=== PATIENT | female | born 1935 | race Caucasian/White ===

== ENCOUNTER → 2020-07-09 10:49 | Outpatient (CLI) | payer OTHER, SELFPAY ==
[2020-07-11 15:36] LABS: COVID19 Sendout Not Detected (Not Detect)
== END ==
PROVIDERS: Visit Provider Physician Assistant
DX: Z11.59 Encounter for screening for other viral diseases (principal)
CPT/HCPCS: 87635

== ENCOUNTER 2020-07-12 11:00 | Inpatient (IN) | payer OTHER, SELFPAY ==
[2020-07-05 08:47] VITALS: BMI 46.7
[2020-07-12] VITALS (14 sets, daily range): BP systolic 104–165; BP diastolic 70–101; PULSE 63–80; RESP 8–20; TEMP 35.9–36.9; O2SAT 90–99; BMI 46.7
--- NOTE | 2020-07-12 | DI.RAD.S_ITS ---
PROCEDURE: XR LUMBAR SPINE 2-3V INDICATIONS: L3-4, L4-5 TLIF TECHNIQUE: 2 views of the lumbar spine were acquired. COMPARISON: None. FINDINGS: Bones: L3-L5 spinal fixation hardware with paraspinal james and pedicle screws as well as interbody cage grafts. Expected intraoperative alignment. Dictated by: Matthew Last M.D. on 07/12/2020 at 16:28 Approved by: Matthew Last M.D. on 07/12/2020 at 16:29
[2020-07-12] MEDS: LACTATED RINGERS 1,000 ML 42 ML IV ×2 (11:40→14:38)
--- NOTE | 2020-07-12 11:51 | PM.PREOP ---
Pre-operative Note COVID-19 COVID-19 status: Negative Result date/Date tested (Pos, Neg/Pending): 07/10/20 Interval Note History & Physical reviewed/Exam performed by Physician: Yes Changes to H&P: No
[2020-07-12] MEDS: CEFAZOLIN 2 GM/100 ML FROZ.PIGGY IV ×2 (12:25→20:54)
--- NOTE | 2020-07-12 13:16 | SUR.OPER ---
Prone on spine table, head in foam head support, padded chest and pelvic supports, gel pad at knees, lower legs supported by pillows; nipples, genitalia and toes free of pressure, arms secured on foam padded arm boards at <90 degrees abduction. Tape over blanket at thigh secured to table.
[2020-07-12] MEDS: BUPIVACAINE 0.25% W/ EPI 30 ML VIAL INJ (13:23)
[2020-07-12] MEDS: BUPIVACAINE LIPOSOME 266 MG/20 ML VIAL INJ (13:23)
--- NOTE | 2020-07-12 14:09 | SUR.OPER ---
GLASSES IN LABELED CASE TO PACU WITH PATIENT.
--- NOTE | 2020-07-12 16:32 | PM.OP.1 ---
Operative Date/Time/Diagnoses Date of procedure: 07/12/20 Time of procedure: 12:33 Pre-op diagnosis: 1. 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 L3-4, L4-5 spondylolisthesis 3. L3-4, L4-5 spinal stenosis Post-op diagnosis: same Procedure & Clinicians Procedure: 1. L3-4, L4-5 Postero-lateral and posterior interbody fusion 2. L3-4, L4-5 interbody cage placement. 3. L3-4, L4-5 decompressive laminectomy with bilateral facetecomies 4. L3-4, L4-5 Posterior segmental instrumentation 5. [place] of bone marrow from iliac crest 6. Utilization of microsurgical technique and operating microscope Same procedure as scheduled: Yes Indications: Patient has been having chronic back pain and worsening lumbar radiculopathy. Patient had prior decompression surgery with progressively worsening back pain and leg numbness. Patient failed multiple conservative management with worsening pain weakness and numbness in her lower extremity. Patient has been having difficulty performing activity of daily living. After discussing risks benefits of treatment options, patient elected proceed with surgery. Surgeon: Natividad Teague Rail Washer: Nubia Vaca Click Yes if Unassisted: No Anesthesia Type: General Operative Notes Closure Type: primary Specimen(s): none sent Prosthetic devices, grafts, tissues, transplants, or devices: Globus revolve screws, Rise cages Applied: catheter Estimated Blood Loss (mL): 150 Blood products transfused: none Procedure in detail: Patient was seen in the preoperative area. Risks and benefits of the surgery was discussed with the patient. Informed consent was obtained from the patient and placed in the chart. Surgical site was marked. Patient was taken to the operative room. General anesthesia was administered. Prophylactic antibiotic was given to the patient less than 30 min before the incision was made. Patient was placed into a prone position on the Armen table. Patient's back was then prepped and draped in the sterile fashion. Time-out was performed at this time. Using AP and lateral C-arm imaging the interval between L3-4, L4-5 was identified and marked on patient's back. A 2 inch incision 2 in from midline was made on the right side first. The fascia was incised in line with skin incision. Globus MARS retractors was placed inside the incision and docked onto the L3 and L4 lamina. Using microsurgical technique and operating microscope, a L3 and L4 laminectomy and L3-4, L4-5 facetectomy was performed using a Kerrison rongeur. Patient was found have severe central and neural foramen stenosis along with significant amount of epidural scarring from prior decompression surgery. The stenosis was fully decompressed after laminectomy facetectomy was completed. Epidural scarring was carefully resected using a Kerrison rongeur and micro curette until the nerve root and thecal sac was free from the adhesion. The disc space at L3-4, L4-5 was identified. And a total diskectomy was performed at L3-4, L4-5 level. The endplates were decorticated using a rasp and shaver. The total diskectomy and decortication was performed at L3-4, L4-5 level in order to to accomplish a L3-4, L4-5 fusion. The local bone from the laminectomy and facetectomy was saved for local bone grafting. After the total diskectomy and decortication was completed, Trifecta bone graft material was combined with local bone that was harvested earlier. At this time, a separate skin is incision was made over the iliac crest. A Jamshidi needle was inserted into the iliac crest through a separate skin incision. 5 cc of bone marrow aspiration was obtained through the separate skin incision using a Jamshidi needle from the iliac crest. The bone marrow aspiration was combined with local bone and the Trifecta bone grafting material. The bone grafting material was placed into the L3-4, L4-5 interbody space along with two cages, one expandable cage at each level. The cages were expanded to their maximum height using the torque limiting screwdriver. At this time a mirror image incision was made on the left side. The fascia was incised in line with the skin incision. Globus MARS retractor was inserted and docked onto the L3-4, L4-5 posterolateral gutter. Using the power drill, posterior-lateral decortication was performed at L3-4, L4-5 level until bleeding cortical bone was identified. The remaining bone grafting material was placed into the L3-4, L4-5 posterior lateral gutter he order to accomplish posterolateral fusion at the L3-4, L4-5 levels. Using the double C-arm technique, pedicle screws were placed into the L3, L4, L5 pedicles bilaterally. This was done by placing the Jamshidi needle into the pedicles, then placing the guidewires over the Jamshidi needle, and finally placing the cannulated screws over the guidewires bilaterally. After the pedicle screws were placed, 2 titanium rods was locked into the heads of the pedicle screws using locking caps and torque limiting screwdriver. Total 6 pedicles screws were placed. Thread software tools developer was used to reduce the L3-4 spondylolisthesis. The reduction was nearly anatomic and significantly improved. After all the hardware was placed, and confirmed with AP and lateral C-arm imaging, the wound was then irrigated with sterile normal saline and packed with Ray-Rhonda gauze for 3 min to accomplish hemostasis. After the gauze was removed the deep fascia was closed with #1 Vicryl suture. The subcutaneous layer was closed with 2-0 Vicryl. The skin was closed with skin riki. Patient tolerated the procedure well. There were no complications. Complications: none Post-operative Condition: stable Disposition: PACU Plan for aftercare: Admit to inpatient hospital
[2020-07-12] MEDS: fentaNYL 100 MCG/2 ML INJ IV ×3 (16:44→17:13)
--- NOTE | 2020-07-12 17:21 | SUR.PHASEI ---
Report given to Batsheva
[2020-07-12] MEDS: SODIUM CHLORIDE 0.9% 1,000 ML 100 ML IV (18:18)
[2020-07-12] MEDS: OXYCODONE IR 5 MG TABLET 10 MG PO ×2 (18:18→22:45)
--- NOTE | 2020-07-12 19:20 | PC.NURSE ---
administered oxycodone for pain 07/01, reassessed 05/31 pt reports pain is tolerable and she is able to sleep. refused additional pain meds.
[2020-07-12] MEDS: MAG HYDROX/ALUM/SIMETH 30 ML UDC PO (19:39)
[2020-07-12 20:13] LABS: Alanine Aminotransferase 21 IU/L (<35)
[2020-07-12 20:47] LABS: Hepatitis B Surface Antigen NEGATIVE s/c (NEGATIVE)
[2020-07-12] MEDS: HYDROMORPHONE 0.5 MG INJ 0.2 MG IV (20:54)
[2020-07-12] MEDS: METOPROLOL IR 50 MG TABLET PO (20:55)
[2020-07-12] MEDS: DOCUSATE 100 MG CAPSULE PO (20:55)
[2020-07-12] MEDS: SENNOSIDES 8.6 MG TABLET 17.2 MG PO (20:55)
[2020-07-12 21:07] LABS: HIV 1 & 2 Ab/Ag 4th Gen Combo NEGATIVE (NEGATIVE); Hep C Virus Ab w/Reflex Quant NEGATIVE s/c (NEGATIVE)
[2020-07-12] MEDS: ONDANSETRON 4 MG/2 ML INJ IV (22:46)
[2020-07-13 00:53] VITALS: BP 141/66; PULSE 75; RESP 20; TEMP 36.1; O2SAT 94
[2020-07-13] MEDS: hydrOXYzine pamoate 25 MG CAPSULE PO (03:00)
[2020-07-13] MEDS: CEFAZOLIN 2 GM/100 ML FROZ.PIGGY IV (03:01)
[2020-07-13] MEDS: OXYCODONE IR 5 MG TABLET 10 MG PO (03:01)
[2020-07-13] MEDS: ONDANSETRON 4 MG/2 ML INJ IV ×2 (04:38→08:39)
[2020-07-13 04:44] VITALS: BP 141/66; PULSE 65; RESP 18; TEMP 36.2; O2SAT 94
[2020-07-13] MEDS: SODIUM CHLORIDE 0.9% 1,000 ML 100 ML IV (05:35)
[2020-07-13] MEDS: PANTOPRAZOLE 20 MG TABLET PO (05:37)
[2020-07-13] MEDS: HYDROMORPHONE 0.5 MG INJ IV (05:37)
[2020-07-13 07:04] LABS: Hematocrit 36.5 % (36-46); Hemoglobin 12.2 g/dL (12.0-16.0)
--- NOTE | 2020-07-13 07:24 | PM.PNPO.1 ---
Subjective Subjective Date Patient Seen: 07/13/20 Time Patient Seen: 07:24 Interval history: Patient's pain is moderate to severe. Patient has had couple doses Dilaudid overnight in on 10 mg oxycodone. She is having some nausea and actually vomited this morning after rolling to her side to view the dressing. She denies fever chills. Exam Vital Signs (past 8 hours): - 07/13/20 00:53 07/13/20 04:44 Temperature 96.9 F L 97.2 F L Pulse Rate 75 65 Respiratory Rate 20 18 Blood Pressure 141/66 H 141/66 H Pulse Oximetry 94 94 Oxygen Delivery Method Nasal Cannula Oxygen Flow Rate 1 Narrative Exam Narrative: Pleasant 84-year-old female resting comfortably in bed in no apparent distress. Dressing is clean, dry and intact. Sensation grossly intact bilateral lower extremities. Motor functions intact bilateral lower extremities. SCDs on and functioning. Objective Labs Result Diagrams: 07/13/20 06:48 Labs: Laboratory Results - last 24 hr 07/12/20 07/12/20 19:50 19:50 ALT 21 Hep Bs Antigen Negative Hepatitis C Antibody Negative HIV 1&2 Ab/P24 Ag 4thGn Negative Assessment & Plan Post-op Postoperative Procedures: Procedures Operation Date: 07/12/20 12:45 Actual Procedures Side Surgeon p L3-4, L4-5 TLIF w/posterior instrumentation Not Applicable Natividad Teague MD Postop day 1. Patient progressing as expected. Mobilize with physical therapy. Limit bending, twisting, lifting. Quality VTE Deep Vein Thrombosis/Pulmonary Embolism Present on Admission: No
[2020-07-13 08:00] VITALS: BP 134/71; PULSE 68; RESP 15; TEMP 36.6; O2SAT 95
[2020-07-13] MEDS: HYDROCODONE/ACET 5/325 TABLET 1 TAB PO ×4 (08:35→22:07)
[2020-07-13] MEDS: METOPROLOL IR 50 MG TABLET PO ×2 (08:35→20:29)
[2020-07-13] MEDS: SCOPOLAMINE 1 PATCH TOP (08:35)
[2020-07-13] MEDS: MELOXICAM 7.5 MG TABLET PO (08:35)
[2020-07-13] MEDS: DOCUSATE 100 MG CAPSULE PO ×2 (08:39→20:29)
--- NOTE | 2020-07-13 09:49 | PT.IIE ---
Current Diagnoses Spondylolisthesis, lumbar region (07/12/20) Spinal stenosis, lumbar region without neurogenic claudication (07/12/20) Postlaminectomy syndrome, not elsewhere classified (07/12/20) Surgery Performed Operation Date: 07/12/20 12:45 Actual Procedures p L3-4, L4-5 TLIF w/posterior instrumentation(Not Applicable) - Natividad Teague MD Surgical History (Last Updated 07/05/20 @ 09:22 by Radha Thomas RN) History of carpal tunnel surgery of left wrist (Acute 2007) History of carpal tunnel surgery of right wrist (Acute 2013) History of colon resection (Acute) History of colonoscopy (Acute) History of hysterectomy (Acute) History of prior ablation treatment (Acute 05/26/20) Hx of bilateral cataract extraction (Acute 2017) Hx of cholecystectomy (Acute) Hx of laminectomy (Acute 10/2002) Hx of rhinoplasty (Acute) Status post excision of lipoma (Acute) Medical History (Last Updated 07/05/20 @ 09:22 by Radha Thomas RN) Arthritis (Acute) Back pain (Acute) Diverticulitis (Acute) Easy bruisability (Acute) GERD (gastroesophageal reflux disease) (Acute) History of prosthetic unicompartmental arthroplasty of left knee (Acute) History of prosthetic unicompartmental arthroplasty of right knee (Acute) HTN (hypertension) (Acute) Keratoma (Acute) Left renal mass (Acute) Lumbar post-laminectomy syndrome (Acute) Melanoma (Acute) Post-nasal drainage (Acute) Spinal stenosis (Acute) Spondylisthesis (Acute) TIA (transient ischemic attack) (Acute ~2010) Physical Therapy Inpatient Evaluation/Re-Eval M1 PT/OT-IP Prior Functional Status Start: 07/13/20 11:18 Freq: NEEDED Status: Active Protocol: Document 07/13/20 09:49 AB (Rec: 07/13/20 11:34 AB [email or web address]) Medical Review Prior Functional Status Medical History Reviewed Yes Communication able to make needs known Mobility and Gait pt stated that she is modified independent with all mobilities and ambulation without AD but can only walk short distances ~ 60 ft. stated that she cannot walk far due to pain but has been doing her recumbent bike . Social History Household Members none Living Arrangements House Number of Floors (Floors) One Floor Number of Stairs To Enter/Railing? 3 steps to enter with L rail ascending Home Environment High Toilet,Walk in Shower Home Equipment Front Wheel Walker,Shower Seat with Backrest,Hand Held Shower,Grab Bars Near Toilet, Grab Bars In Shower Additional Social History Comment stated that her daughter will stay with her for ~ days and will be by herself afterwards but has friends that will check on her. pt has walking sticks M2 PT-IP Current Condition Start: 07/13/20 11:18 Freq: NEEDED Status: Active Protocol: Document 07/13/20 09:49 AB (Rec: 07/13/20 11:34 AB [email or web address]) Physical Therapy Current Condition Current Condition Evaluation Date 07/13/20 Treatment Diagnosis s/p L3-4, L4-5 fusion/lami; difficulty in walking Onset Date 07/12/20 Precautions Lumbar Precautions Log Roll,No Twisting,Limit Bending,Lifting Restriction of 10 lbs,Gait Belt above Incisional Area M3 PT-IP Subjective Start: 07/13/20 11:18 Freq: NEEDED Status: Active Protocol: Document 07/13/20 09:49 AB (Rec: 07/13/20 11:34 AB [email or web address]) Subjective Physical Therapy Visit Type Type Initial Evaluation Visit Start Time 09:49 Visit Stop Time 10:21 Total Visit Minutes 32 Number of TOP CLOSER Visits 0 Physical Therapy Visit Comments Patient Comments pt is agreeable to do PT Therapy Pain Assessment Pain When Pain Assessed At Rest Pain Present Pain Present Pain Reported Location Back Intensity 3 Scale Used increases to 5/10 with mobility Pain Management Techniques Apply Cold,Modification of Treatment,Re-positioning, Timing of Activity with Medications M4 PT-IP Mobility and Gait Start: 07/13/20 11:18 Freq: NEEDED Status: Active Protocol: Document 07/13/20 09:49 AB (Rec: 07/13/20 11:34 AB [email or web address]) PT-Bed Mobility Assessment Rolling Type of Rolling Log Rolling Level of Assist Minimal Assistance Supine to Sit Supine to Sit Minimal Assistance,1 Person Assistance Sit to Supine Sit to Supine Moderate Assistance,1 Person Assistance PT-Transfer Assessment Sit to and From Stand Sit to and from Stand Minimal Assistance,1 Person Assistance,Use of Upper Extremities Equipment Transfer Assistive Device Gait Belt,Front Wheeled Walker Orthotic/Prosthetic Devices or Brace: No Transfers Transfer Destination Bed,Chair Transfer Technique Stand Step Pivot Transfer Ability Level of Assist Minimal Assistance,1 Person Assistance,Use of Upper Extremities Comments Mobility Comments pt sitting on chair and agreeable to do PT. reviewed back precautions and log roll bed mobility. pt completed sit to stand from chair min A and ambulated ~ 5 ft but has to sit down due to nausea. BP stable 131/65. pt completed sit to stand again from EOB min A and was able to ambulate ~ 25 ft using FWW min A. completed sit to supine mod A to elevate LE and cues for techniques. pt completed sit to supine min A and cues. pt required frequent rest breaks in between activities. pt completed stand pivot transfer to chair using FWW min A. positioned pt on chair. call light and table placed within reach . Gait Assessment Gait Gait Assistance Required: Minimum Assistance Distance (Feet) 25 Able to Maintain Weight Bearing Status Yes During Gait Assistive Devices Assistive Device Gait Belt,Front Wheeled Walker Orthotic/Prosthetic Devices or Brace: No Gait Deviations General Gait Pattern Antalgic,Decreased Stride Length,Decreased Feet Clearance,Step-to Gait Factors Limiting Gait Function Factors Limiting Gait Function Decreased Activity Tolerance, Decreased Sensation,Decreased Strength,Limited Range of Motion,Pain,Poor Balance,Poor Safety Awareness PT-Balance Assessment Sitting Balance and Reactions Static Sitting Balance Ability Good Dynamic Sitting Balance Ability Good Standing Balance and Reactions Static Standing Balance Ability Fair Dynamic Standing Balance Ability Fair Device Used FWW M5 PT-IP Objective Assessments Start: 07/13/20 11:18 Freq: NEEDED Status: Active Protocol: Document 07/13/20 09:49 AB (Rec: 07/13/20 11:34 AB [email or web address]) Orientation Orientation/Cognition Level of Alertness Alert Orientation Name,Age,Birthday,Month,Date, Year,Day of Week,Place, Situation Language Function Ability No Deficits Noted Memory Description Short Term Impaired Gross Range of Motion Lower Extremity ROM Assessment Within Functional Limits Strength Lower Extremity Strength Assessment Right Impaired Hip 3+/5 Knee 3+/5 Coordination Assessment Gross Coordination Gross Coordination WNL Sensation Assessment Sensation Gross Sensation Right LE Impaired Light Touch Impaired Proprioception (Position) Impaired Sensation Description Numbness Comments Sensation Comments stated RLE numbness : chronic and can only feel ~ 30 % Muscle Tone Muscle Tone WNL Yes M6 PT-IP Treatment Start: 07/13/20 11:18 Freq: NEEDED Status: Active Protocol: Document 07/13/20 09:49 AB (Rec: 07/13/20 11:34 AB [email or web address]) Physical Therapy Treatment Education Education Provided Precautions,Weight Bearing Status,Post-Op Packet,Safety M7 PT-IP Assessment and Plan Start: 07/13/20 11:18 Freq: NEEDED Status: Active Protocol: Document 07/13/20 09:49 AB (Rec: 07/13/20 11:34 AB [email or web address]) PT Summary Assessment and Plan Potential Rehabilitation Potential Good Status of Condition at Evaluation Stable Summary Impairments Pain,ROM,Strength,Balance, Coordination,Sensation,Tone, Cognition,Bed Mobility, Transfers,Gait,Activity Tolerance Assessment Summary pt requiring min A with transfers and ambulation using FWW. plans to go home initially with daughter to assist her but afterwards, will just have friends to assist as needed. will conduct caregiver training when appropriate and will also complete stair climbing training prior to d/c. Goals Bed Mobility Goal Independent Transfer Goal Independent,Front Wheeled Walker Gait Goal Independent,Front Wheel Walker Gait Distance 150 Other Goals up/down 3 steps L rail ascending SBA Days to Meet Goals 5 Frequency of Treatment Frequency Of Treatment Twice a Day Treatment Plan Physical Therapy Treatment Plan Bed Mobility Training,Transfer Training,Gait Training, Therapeutic Exercise,Balance Retraining,Post Op Education, Discharge Planning,Hot or Cold Pack,Neuromuscular Re-ed, Coordination Retraining,Manual Therapy Other Recommendations and Next Treatment bed mobility, ambulation Focus Recommendations To Nursing Amount of Assist Needed 1 Person Assist Discharge Recommendations PT Discharge Recommendations Home with Assistance Transportation Needs at Discharge Private Vehicle
[2020-07-13] MEDS: MAG HYDROX/ALUM/SIMETH 30 ML UDC PO (10:35)
[2020-07-13 11:19] VITALS: BP 153/78; PULSE 67; RESP 16; TEMP 36.7; O2SAT 95
--- NOTE | 2020-07-13 11:25 | OT.IP.EVAL ---
Current Diagnoses Spondylolisthesis, lumbar region (07/12/20) Spinal stenosis, lumbar region without neurogenic claudication (07/12/20) Postlaminectomy syndrome, not elsewhere classified (07/12/20) Surgery Performed Operation Date: 07/12/20 12:45 Actual Procedures p L3-4, L4-5 TLIF w/posterior instrumentation(Not Applicable) - Natividad Teague MD Past Medical History (Last Updated 07/05/20 @ 09:22 by Radha Thomas RN) Arthritis (Acute) Back pain (Acute) Diverticulitis (Acute) Easy bruisability (Acute) GERD (gastroesophageal reflux disease) (Acute) History of prosthetic unicompartmental arthroplasty of left knee (Acute) History of prosthetic unicompartmental arthroplasty of right knee (Acute) HTN (hypertension) (Acute) Keratoma (Acute) Left renal mass (Acute) Lumbar post-laminectomy syndrome (Acute) Melanoma (Acute) Post-nasal drainage (Acute) Spinal stenosis (Acute) Spondylisthesis (Acute) TIA (transient ischemic attack) (Acute ~2010) Surgical History (Last Updated 07/05/20 @ 09:22 by Radha Thomas RN) History of carpal tunnel surgery of left wrist (Acute 2007) History of carpal tunnel surgery of right wrist (Acute 2013) History of colon resection (Acute) History of colonoscopy (Acute) History of hysterectomy (Acute) History of prior ablation treatment (Acute 05/26/20) Hx of bilateral cataract extraction (Acute 2017) Hx of cholecystectomy (Acute) Hx of laminectomy (Acute 10/2002) Hx of rhinoplasty (Acute) Status post excision of lipoma (Acute) Occupational Therapy Inpatient Evaluation/Re-Eval M1 PT/OT-IP Prior Functional Status Start: 07/13/20 12:03 Freq: NEEDED Status: Active Protocol: Document 07/13/20 12:03 [facility] (Rec: 07/13/20 12:23 [facility] [id number]) Medical Review Prior Functional Status Medical History Reviewed Yes Communication able to make needs known Mobility and Gait pt stated that she is modified independent with all mobilities and ambulation without AD but can only walk short distances ~ 60 ft. stated that she cannot walk far due to pain but has been doing her recumbent bike . Activities of Daily Living and IADL's Pt states prior completely independent with all ADl , IADL, drives but has handicapped parking, and does her own medications and bills. Social History Household Members none Living Arrangements House Number of Floors (Floors) One Floor Number of Stairs To Enter/Railing? 3 steps to enter with L rail ascending Home Environment High Toilet,Walk in Shower Home Equipment Front Wheel Walker,Shower Seat with Backrest,Hand Held Shower,Grab Bars Near Toilet, Grab Bars In Shower Additional Social History Comment stated that her daughter will stay with her for 2-3 days and will be by herself afterwards but has friends that will check on her. pt has walking sticks M2 OT-IP Current Condition Start: 07/13/20 12:03 Freq: Status: Active Protocol: Document 07/13/20 12:03 [facility] (Rec: 07/13/20 12:23 [facility] [id number]) Occupational Therapy Current Condition Current Condition Evaluation Date 07/13/20 Treatment Diagnosis Spinal stenosis s/p L3-4, L4-5 TLIF with posterior inst Diagnosis Onset Date 07/12/20 Post Operative Precautions Lumbar Precautions Log Roll,No Twisting,Limit Bending,Lifting Restriction of 10 lbs,Gait Belt above Incisional Area M3 OT- IP Subjective and Pain Start: 07/13/20 12:03 Freq: Status: Active Protocol: Document 07/13/20 12:03 [facility] (Rec: 07/13/20 12:23 [facility] [id number]) OT- Subjective Occupational Therapy Visit Type Type Initial Evaluation Visit Start Time 10:34 Visit Stop Time 11:25 Total Visit Minutes 51 Occupational Therapy Visit Comments Patient Comments Pt willing to get up to do OT eval. Patient/Caregiver Goals TO go home. OT Pain Assessment Pain When Pain Assessed At Rest Pain Present Pain Present Pain Reported Location Back Intensity 3 Scale Used Numeric (0 - 10) M4 OT- IP ADL's Start: 07/13/20 12:03 Freq: Status: Active Protocol: Document 07/13/20 12:03 [facility] (Rec: 07/13/20 12:23 [facility] [id number]) OT [id number] Comments OT Self-Feeding Comments Not at meal time. OT ADL-Grooming Comments OT Grooming Comments NOt performed. OT ADL-Oral Care Comments Oral Care Comments Educated best to spit into a cup to best follow back precautions. OT ADL-Dressing General Eval Lower Body Dressing Ability Maximum Assistance Areas Needing Assistance Underpants/Brief,Socks Comments OT Dressing Comments Educated pt on use LB dressing equipment and able to practice to jana/doff brief and socks. Pt able to show good safety. OT ADL-Toileting Comments OT Toileting Comments Not having to go. Spoke at length as to how pt wipes and that she normally wipes from the front for all needs. Therefore pt agrees that it would be best to get a toilet paper aid to best follow back precautions. OT ADL-Bathing Comments OT Bathing Comments Not performed M5 OT- IP IADL's Start: 07/13/20 12:03 Freq: Status: Active Protocol: Document 07/13/20 12:03 [facility] (Rec: 07/13/20 12:23 [facility] [id number]) OT-Instrumental Activities of Daily Living Home Safety Awareness Awareness of Need for Assistance at Home Good Awareness Ability to Problem Solve Emergency Able to Problem Solve Situations Medication Management Medication Management No Deficits Identified Money Management Money Management No Deficits Identified Meal Preparation Meal Preparation Caregiver Provides Assist Patch Setter Patch Setter Caregiver Provides Assist OT- IP Functional Cognition Start: 07/13/20 12:03 Freq: Status: Active Protocol: Document 07/13/20 12:03 [facility] (Rec: 07/13/20 12:23 [facility] [id number]) Cognitive Factors Limiting Selfcare Function Cognitive Ability Level of Alertness Alert Patient Orientation Name,Age,Birthday,Month,Date, Year,Day of Week,Place, Situation Attention Span Ability Capable of Focused Attention, Capable of Sustained Attention Ability to Follow Commands Able to Follow One Step Commands Memory Description No Deficits Noted Safety Awareness Underestimates Need for Assistance Cognitive Comments Cognitive Assessment Comments Pt able to follow one step commands and initially got a little confused and how to use the sock aid and needed assist. Pt needing vc for FWW use and safety to push up on the recliner with her hands instead of grabbing the FWW to stand. OT- Vision and Hearing OT- Hearing Assessment OT- Hearing Assessment WFL OT- Vision Assessment Visual Acuity Glasses For Reading M7 OT- IP Mobility and Balance Start: 07/13/20 12:03 Freq: Status: Active Protocol: Document 07/13/20 12:03 [facility] (Rec: 07/13/20 12:23 [facility] [id number]) OT- Bed Mobility Assessment Sit to Supine Sit to Supine Assist Moderate Assistance OT-Transfer Assessment Sit to and From Stand Sit to and from Stand Contact Guard Assistance Transfers Transfer Ability Contact Guard Assistance Technique Transfer Destination Bed,Chair Transfer Technique Stand Step Pivot Devices Transfer Assistive Devices Gait Belt,Front Wheeled Walker Comments Mobility Comments Pt CGA to stand and initial OT- Balance Assessment Sitting Balance and Reactions Static Sitting Balance Ability Normal Dynamic Sitting Balance Ability Good Standing Balance and Reactions Static Standing Balance Ability Fair M8 OT- IP Objective Assessments Start: 07/13/20 12:03 Freq: Status: Active Protocol: Document 07/13/20 12:03 [facility] (Rec: 07/13/20 12:23 [facility] [id number]) OT Gross Range of Motion Upper Extremity Range of Motion Assessment Within Functional Limits OT-Muscle Tone Assessment Muscle Tone WNL Yes M9 OT- IP Assessment and Plan Start: 07/13/20 12:03 Freq: Status: Active Protocol: Document 07/13/20 12:03 [facility] (Rec: 07/13/20 12:23 [facility] [id number]) OT Summary Assessment and Plan Potential Rehabilitation Potential Good Analytic Complexity at Evaluation Low Summary OT Impairments Pain,Functional Mobility, Grooming,Dressing,Toileting, Bathing,Toilet Transfers, Shower Transfers,Activity Tolerance Progress Towards Goals Progressing Toward Goals Assessment Summary Pt low complexity s/p L3-4 , L4-5 TLIF, main barriers are steps, now needing one person assist for bed mobility needs and unable to do own hygiene care after bowel movement. Pt 's daughter to stay with her for a few days and then neighbors/friends to assist as needed. Pt will benefit from getting a toilet paper aid. Pt looking to go home with assist. Pt's daughter to be here for caregiver training tomorrow. Goals Grooming Goal Independent Dressing Goal Independent Toileting Goal Independent Bathing Goal Independent Toilet Transfer Goal Independent Shower Transfer Goal Independent Patient/Caregiver Education Goal Demonstrate Post-Op Precautions Days to Meet Goals 5 Frequency of Treatment Frequency Of Treatment Once a Day Treatment Plan OT Treatment Plan ADL Training,Functional Cognition Training,Functional Mobility,Patient/Family Education,Discharge Planning Other Treatment Recommendations and Next shower and use of LB dressing Treatment Focus equipment, caregiver training Discharge Recommendations OT Discharge Recommendations Home with Assistance Home Equipment Needs Toilet paper aid, long handled sponge Transportation Needs at Discharge Private Vehicle
--- NOTE | 2020-07-13 12:40 | PT.IPTN ---
Current Diagnoses Spondylolisthesis, lumbar region (07/12/20) Spinal stenosis, lumbar region without neurogenic claudication (07/12/20) Postlaminectomy syndrome, not elsewhere classified (07/12/20) Surgery Performed Operation Date: 07/12/20 12:45 Actual Procedures p L3-4, L4-5 TLIF w/posterior instrumentation(Not Applicable) - Natividad Teague MD Physical Therapy Treatment Note M2 PT-IP Current Condition Start: 07/13/20 11:18 Freq: NEEDED Status: Active Protocol: Document 07/13/20 09:49 AB (Rec: 07/13/20 11:34 AB [id number]) Physical Therapy Current Condition Current Condition Evaluation Date 07/13/20 Treatment Diagnosis s/p L3-4, L4-5 fusion/lami; difficulty in walking Onset Date 07/12/20 Precautions Lumbar Precautions Log Roll,No Twisting,Limit Bending,Lifting Restriction of 10 lbs,Gait Belt above Incisional Area M3 PT-IP Subjective Start: 07/13/20 11:18 Freq: NEEDED Status: Active Protocol: Document 07/13/20 12:40 AB (Rec: 07/13/20 13:36 AB [id number]) Subjective Physical Therapy Visit Type Type Treatment Note Visit Start Time 12:40 Visit Stop Time 12:59 Total Visit Minutes 19 Number of GUM DIPPER Visits 0 Physical Therapy Visit Comments Patient Comments continues to c/o nausea Therapy Pain Assessment Pain When Pain Assessed At Rest Pain Present Pain Present Pain Reported Location Back Intensity 5 Scale Used Numeric (0 - 10) Pain Management Techniques Distraction,Modification of Treatment,Re-positioning, Timing of Activity with Medications M4 PT-IP Mobility and Gait Start: 07/13/20 11:18 Freq: NEEDED Status: Active Protocol: Document 07/13/20 12:40 [facility] (Rec: 07/13/20 13:36 AB [id number]) PT-Bed Mobility Assessment Rolling Type of Rolling Log Rolling Supine to Sit Supine to Sit Standby Assistance Sit to Supine Sit to Supine Standby Assistance PT-Transfer Assessment Sit to and From Stand Sit to and from Stand Contact Guard Assistance,Use of Upper Extremities Equipment Transfer Assistive Device Gait Belt,Front Wheeled Walker Orthotic/Prosthetic Devices or Brace: No Comments Mobility Comments pt supine in bed and daughter in room with pt. pt stated that she is tired but agreed to do PT. completed supine to sit log roll SBA. caregiver training initiated. educated daughter regarding pt's back precautions and log roll bed mobility. also educated on how to use safety belt. daughter was able to put safety belt on pt and provided assist with sit to stand. pt ambulated in room ~ 20 ft SBA to [facility]. pt is more unsteady with ambulation this afternoon and c/o increase pain. increase R knee bending during ambulation with slight buckling. educated on R quads activation. pt requested to go back to bed. stated that she does not think she can do the stairs today. pt completed sit to supine SBA . positioned pt in bed. call light and table placed within reach. daughter stated that she will be in tomorrow ~ 11 am. Gait Assessment Gait Gait Assistance Required: Standby Assistance,Contact Guard Assist Distance (Feet) 20 Able to Maintain Weight Bearing Status Yes During Gait Assistive Devices Assistive Device Gait Belt,Front Wheeled Walker Orthotic/Prosthetic Devices or Brace: No Gait Deviations General Gait Pattern Antalgic,Decreased Stride Length,Decreased Feet Clearance,Step-to Gait Factors Limiting Gait Function Factors Limiting Gait Function Decreased Activity Tolerance, Decreased Sensation,Decreased Strength,Limited Range of Motion,Pain,Poor Balance,Poor Safety Awareness Comments Gait Comments pls refer to mobility section for details M5 PT-IP Objective Assessments Start: 07/13/20 11:18 Freq: NEEDED Status: Active Protocol: Document 07/13/20 09:49 AB (Rec: 07/13/20 11:34 AB [id number]) Orientation Orientation/Cognition Level of Alertness Alert Orientation Name,Age,Birthday,Month,Date, Year,Day of Week,Place, Situation Language Function Ability No Deficits Noted Memory Description Short Term Impaired Gross Range of Motion Lower Extremity ROM Assessment Within Functional Limits Strength Lower Extremity Strength Assessment Right Impaired Hip 3+/5 Knee 3+/5 Coordination Assessment Gross Coordination Gross Coordination WNL Sensation Assessment Sensation Gross Sensation Right LE Impaired Light Touch Impaired Proprioception (Position) Impaired Sensation Description Numbness Comments Sensation Comments stated RLE numbness : chronic and can only feel ~ 30 % Muscle Tone Muscle Tone WNL Yes M6 PT-IP Treatment Start: 07/13/20 11:18 Freq: NEEDED Status: Active Protocol: Document 07/13/20 12:40 AB (Rec: 07/13/20 13:36 AB [id number]) Physical Therapy Treatment Education Education Provided Precautions,Safety M7 PT-IP Assessment and Plan Start: 07/13/20 11:18 Freq: NEEDED Status: Active Protocol: Document 07/13/20 12:40 AB (Rec: 07/13/20 13:36 AB [id number]) PT Summary Assessment and Plan Potential Rehabilitation Potential Good Summary Impairments Pain,ROM,Strength,Balance, Sensation,Bed Mobility, Transfers,Gait,Activity Tolerance Progress Towards Goals Slow Progress due to Pain,Slow Progress due to Activity Tolerance Assessment Summary caregiver training initiated but further caregiver training is needed. pt was unable to tolerate much activity with c/ o increase pain, nausea and fatigue. will need further assessment for safe d/c plan. pt may require homehealth PT if pt goes home. Goals Bed Mobility Goal Independent Transfer Goal Independent,Front Wheeled Walker Gait Goal Independent,Front Wheel Walker Gait Distance 150 Other Goals up/down 3 steps L rail ascending SBA Days to Meet Goals 5 Frequency of Treatment Frequency Of Treatment Twice a Day Treatment Plan Physical Therapy Treatment Plan Bed Mobility Training,Transfer Training,Gait Training, Therapeutic Exercise,Balance Retraining,Post Op Education, Discharge Planning,Hot or Cold Pack,Neuromuscular Re-ed, Coordination Retraining,Manual Therapy Other Recommendations and Next Treatment bed mobility, ambulation Focus Recommendations To Nursing Amount of Assist Needed 1 Person Assist Discharge Recommendations PT Discharge Recommendations Home with Assistance Transportation Needs at Discharge Private Vehicle
[2020-07-13] MEDS: CALCIUM CARBONATE 500 MG TAB PO (14:00)
--- NOTE | 2020-07-13 14:47 | PC.NURSE ---
SHIFT SUMMARY: FIRST THING THIS AM, PATIENT HAD EMESIS AFTER ROLLING TO HER SIDE WITH ORTHO PA IN ROOM. TOTAL OF 500CC'S. GIVEN ZOFRAN, MAALOX AND TUMS TODAY. SCOLP PATCH BEHIND RIGHT EAR. ASSISTED TO RECLINER FIRST THING THIS AM. 2P ASSIST TO SIDE OF BED, THEN 1P SBA TO RECLINER. ICE PACK PLACED TO LOW BACK. DRSG CDI. PATIENT FELT MUCH BETTER OUT OF THE BED. TOLERATED CRACKERS AND SOME FRUIT AT BREAKFAST AND GIVEN 1 VICODIN Q 4HR PRN WITH ADEQUATE RELIEF TO 3/10 AT REST, 5/10 WITH ACTIVITY. SL'D AT END OF SHIFT. TAKING IN FLUIDS, PO SOLID INTAKE STILL SLOW. PASSING FLATUS.
[2020-07-13 15:22] VITALS: BP 138/57; PULSE 70; RESP 16; TEMP 36.9; O2SAT 95
--- NOTE | 2020-07-13 15:36 | CM.DANOTE ---
Pt. is a pleasant A&O x 4 here s/p spinal fusion. Pt. Patient's pain is moderate to severe. Patient has had couple doses Dilaudid overnight in on 10 mg oxycodone. She is having some nausea and actually vomited this morning after rolling to her side to view the dressing. She had a previous back surgery 17 years ago and this is much worse pain than I remember or expected. Her plan is to go home with assistance from daughter (local) and friends. Would be open to either or SNF if indicated. Would like HH ([facility] would be fine) because she is nervous due to the pain and persistent nausea, will need to consult therapies to see recommendation. told her that she could stay here as long as she wants.... the important thing is that she is comfortable with discharge. I told her that the physician is the one that orders the discharge, but her insurance has a voice in how long they'll reimburse her stay, but nothing was happening tonight so let's just focus on her feeling better. I told her CM would visit again when she was feeling less nauseated.
[2020-07-13 19:33] VITALS: BP 131/97; PULSE 73; RESP 16; TEMP 36.9; O2SAT 94
[2020-07-13] MEDS: SENNOSIDES 8.6 MG TABLET 17.2 MG PO (20:29)
[2020-07-14 00:31] VITALS: BP 116/52; PULSE 70; RESP 16; TEMP 37; O2SAT 92
[2020-07-14] MEDS: HYDROCODONE/ACET 5/325 TABLET 1 TAB PO ×5 (02:16→21:39)
[2020-07-14 04:13] LABS: Hepatitis B Surf Ab Qualitativ Non Reactive (.)
[2020-07-14 05:51] VITALS: BP 97/41; PULSE 76; RESP 16; TEMP 36.8; O2SAT 93
[2020-07-14] MEDS: PANTOPRAZOLE 20 MG TABLET PO (05:56)
--- NOTE | 2020-07-14 07:32 | PM.PNPO.1 ---
Subjective Subjective Date Patient Seen: 07/14/20 Time Patient Seen: 07:32 Interval history: POD #2 s/p L3-4, L4-5 TLIF w/posterior instrumentation with Dr. Teague. Patients pain is well controlled. She does complain of arthritic pain in joints. She has been up with therapy but has only mobilized in her room. She states she has difficulty getting out of bed. Exam Vital Signs (past 8 hours): - 07/14/20 00:31 07/14/20 05:51 Temperature 98.6 F 98.2 F Pulse Rate 70 76 Respiratory Rate 16 16 Blood Pressure 116/52 L 97/41 L Pulse Oximetry 92 93 Oxygen Delivery Method Room Air Oxygen Flow Rate 0 Narrative Exam Narrative: Patient lying in bed in no acute distress. She is alert orient x3. Calves are soft, compressible, nontender bilaterally. Pulses are symmetrical. SCDs on and functioning. Objective Labs Result Diagrams: 07/13/20 06:48 Labs: Laboratory Results - last 24 hr 07/12/20 07/13/20 19:50 06:48 Hgb 12.2 Hct 36.5 Hep Bs Antibody Non reactive Assessment & Plan Post-op Postoperative Procedures: Procedures Operation Date: 07/12/20 12:45 Actual Procedures Side Surgeon p L3-4, L4-5 TLIF w/posterior instrumentation Not Applicable Natividad Teague MD Mobilize with PT today. DC umanzor catheter today. If patient is able to mobilize safely she will be able to go home today. If she does not go home we may need to consider home health vs SNF. Quality VTE Deep Vein Thrombosis/Pulmonary Embolism Present on Admission: No
[2020-07-14 08:13] VITALS: BP 136/50; PULSE 69; RESP 16; TEMP 36.9; O2SAT 95
--- NOTE | 2020-07-14 08:50 | PC.NURSE ---
Patient is awake and denies discomfort at this time. BS CTA and heart rate wnl. Patient has a dressing to lower back that is cdi, OT into see what time she would like to shower and patient states in the afternoon. She has had numbness to her r.leg and foot for many years so this is unchanged. UP with 1pa and walker, patient has a umanzor catheter that will be removed today. She tolerated breakfast well and is resting.
--- NOTE | 2020-07-14 09:13 | OT.IPNOTE ---
Pt requesting to wait on showering with OT until this afternoon.
[2020-07-14] MEDS: MELOXICAM 7.5 MG TABLET PO (09:39)
[2020-07-14] MEDS: hydroCHLOROthiazide 12.5 MG CAPSULE PO (09:39)
[2020-07-14] MEDS: DOCUSATE 100 MG CAPSULE PO ×2 (09:39→20:02)
[2020-07-14] MEDS: METOPROLOL IR 50 MG TABLET PO ×2 (09:39→20:02)
[2020-07-14] MEDS: SCOPOLAMINE 1 PATCH TOP (09:39)
[2020-07-14] MEDS: SODIUM CHLORIDE 0.9% FLUSH 10 ML IV ×2 (10:40→20:03)
--- NOTE | 2020-07-14 10:56 | PT.IPTN ---
Current Diagnoses Spondylolisthesis, lumbar region (07/13/20) Spinal stenosis, lumbar region without neurogenic claudication (07/13/20) Postlaminectomy syndrome, not elsewhere classified (07/13/20) Surgery Performed Operation Date: 07/12/20 12:45 Actual Procedures p L3-4, L4-5 TLIF w/posterior instrumentation(Not Applicable) - Natividad Teague MD Physical Therapy Treatment Note M2 PT-IP Current Condition Start: 07/13/20 11:18 Freq: NEEDED Status: Active Protocol: Document 07/13/20 09:49 AB (Rec: 07/13/20 11:34 AB [id number]) Physical Therapy Current Condition Current Condition Evaluation Date 07/13/20 Treatment Diagnosis s/p L3-4, L4-5 fusion/lami; difficulty in walking Onset Date 07/12/20 Precautions Lumbar Precautions Log Roll,No Twisting,Limit Bending,Lifting Restriction of 10 lbs,Gait Belt above Incisional Area M3 PT-IP Subjective Start: 07/13/20 11:18 Freq: NEEDED Status: Active Protocol: Document 07/14/20 10:56 AB (Rec: 07/14/20 12:01 AB [id number]) Subjective Physical Therapy Visit Type Type Treatment Note Visit Start Time 10:56 Visit Stop Time 11:35 Total Visit Minutes 39 Number of ALTERATION TAILOR Visits 0 Physical Therapy Visit Comments Patient Comments pt is agreeable to do PT; stated no pain on back with rest but stated arthritic pain on joints Therapy Pain Assessment Pain When Pain Assessed At Rest Pain Present Pain Present Pain Reported Location Bilateral Knee Intensity 3 Scale Used Numeric (0 - 10) Pain Management Techniques Modification of Treatment Bilateral Hip Intensity 3 Scale Used Numeric (0 - 10) Pain Management Techniques Modification of Treatment M4 PT-IP Mobility and Gait Start: 07/13/20 11:18 Freq: NEEDED Status: Active Protocol: Document 07/14/20 10:56 AB (Rec: 07/14/20 12:01 AB [id number]) PT-Bed Mobility Assessment Rolling Type of Rolling Log Rolling Level of Assist Minimal Assistance Supine to Sit Supine to Sit Minimal Assistance Scooting Scooting to Edge of Bed Maximum Assistance PT-Transfer Assessment Sit to and From Stand Sit to and from Stand Minimal Assistance,Moderate Assistance,1 Person Assistance ,Use of Upper Extremities Equipment Transfer Assistive Device Gait Belt,Front Wheeled Walker Orthotic/Prosthetic Devices or Brace: No Transfers Transfer Destination Chair Transfer Technique ambulated using FWW Transfer Ability Level of Assist Moderate Assistance,1 Person Assistance,Use of Upper Extremities Comments Mobility Comments pt completed supine to sit log roll min A and max cues for techniques. pt required increase time to complete tasks and cues for back precautions. pt required max A for scooting to the EOB. caregiver training intiated and daughter was able to put safety belt on pt. educated daughter on how to assist pt. pt completed sit to stand min to mod A and required 3 attempts to complete task. educated daughter on how to assist pt with sit to stand and ambulation. pt ambulated ~ 6 ft and R knee buckled requiring mod to max A to recover. pt ambulated another 15 ft afterwards requiring mod A and max cues for R quads activation. required PT assist to stabilize R knee. pt refused further ambulation afterwards. positioned on chair. completed LE exercises and educated on HEP. informed pt and daughter regarding safety and SNF rehab at this time. daughter in agreement but pt is hesistant initially but is more agreeable due to R knee buckling. call light and table placed within reach. Gait Assessment Gait Gait Assistance Required: Moderate Assistance,Maximum Assistance Distance (Feet) 21 Able to Maintain Weight Bearing Status Yes During Gait Assistive Devices Assistive Device Gait Belt,Front Wheeled Walker Orthotic/Prosthetic Devices or Brace: No Gait Deviations General Gait Pattern Antalgic,Decreased Stride Length,Decreased Feet Clearance,Wide Based Gait Factors Limiting Gait Function Factors Limiting Gait Function Decreased Activity Tolerance, Decreased Sensation,Decreased Strength,Limited Range of Motion,Pain,Poor Balance,Poor Safety Awareness Comments Gait Comments pls refer to mobility section for details. (+) R knee buckling during ambulation requiring mod to max A to recover M5 PT-IP Objective Assessments Start: 07/13/20 11:18 Freq: NEEDED Status: Active Protocol: Document 07/13/20 09:49 AB (Rec: 07/13/20 11:34 AB [id number]) Orientation Orientation/Cognition Level of Alertness Alert Orientation Name,Age,Birthday,Month,Date, Year,Day of Week,Place, Situation Language Function Ability No Deficits Noted Memory Description Short Term Impaired Gross Range of Motion Lower Extremity ROM Assessment Within Functional Limits Strength Lower Extremity Strength Assessment Right Impaired Hip 3+/5 Knee 3+/5 Coordination Assessment Gross Coordination Gross Coordination WNL Sensation Assessment Sensation Gross Sensation Right LE Impaired Light Touch Impaired Proprioception (Position) Impaired Sensation Description Numbness Comments Sensation Comments stated RLE numbness : chronic and can only feel ~ 30 % Muscle Tone Muscle Tone WNL Yes M6 PT-IP Treatment Start: 07/13/20 11:18 Freq: NEEDED Status: Active Protocol: Document 07/14/20 10:56 AB (Rec: 07/14/20 12:01 AB [id number]) Physical Therapy Treatment Exercises Exercises Gluteal Sets,Quad Sets Education Education Provided Precautions,Safety M7 PT-IP Assessment and Plan Start: 07/13/20 11:18 Freq: NEEDED Status: Active Protocol: Document 07/14/20 10:56 AB (Rec: 07/14/20 12:01 AB [id number]) PT Summary Assessment and Plan Potential Rehabilitation Potential Fair Summary Impairments Pain,ROM,Strength,Balance, Coordination,Sensation,Tone, Cognition,Bed Mobility, Transfers,Gait,Activity Tolerance Progress Towards Goals Slow Progress due to Medical Issues,Slow Progress due to Activity Tolerance Assessment Summary caregiver training initiated but pt with (+) R knee buckling during ambulation requiring PT to assist pt and stabilize R knee. pt also unable to ambulate much due to decrease activity tolerance and only tolerated ~ 20 ft of ambulation. pt also has steps to enter the house and at this time is not appropriate to do stair climbing training due to RLE weakness with (+) R knee buckling. Pt is a high fall risk and will require 24/ 7 care at this time. pt needs to be more independent than current level before she can be safe to go home and will need SNF rehab. Goals Bed Mobility Goal Independent Transfer Goal Independent,Front Wheeled Walker Gait Goal Independent,Front Wheel Walker Gait Distance 150 Other Goals up/down 3 steps L rail ascending SBA Days to Meet Goals 5 Frequency of Treatment Frequency Of Treatment Twice a Day Treatment Plan Physical Therapy Treatment Plan Bed Mobility Training,Transfer Training,Gait Training, Therapeutic Exercise,Balance Retraining,Post Op Education, Discharge Planning,Hot or Cold Pack,Neuromuscular Re-ed, Coordination Retraining,Manual Therapy Other Recommendations and Next Treatment bed mobility, ambulation Focus Recommendations To Nursing Amount of Assist Needed 1 Person Assist Discharge Recommendations PT Discharge Recommendations SNF Rehab Transportation Needs at Discharge Private Vehicle
[2020-07-14 12:31] VITALS: BP 150/63; PULSE 67; RESP 15; TEMP 36.6; O2SAT 96
--- NOTE | 2020-07-14 15:03 | OT.IP.TRT ---
Current Diagnoses Spondylolisthesis, lumbar region (07/13/20) Spinal stenosis, lumbar region without neurogenic claudication (07/13/20) Postlaminectomy syndrome, not elsewhere classified (07/13/20) Surgery Performed Operation Date: 07/12/20 12:45 Actual Procedures p L3-4, L4-5 TLIF w/posterior instrumentation(Not Applicable) - Natividad Teague MD Occupational Therapy Treatment Note M2 OT-IP Current Condition Start: 07/13/20 12:03 Freq: Status: Active Protocol: Document 07/13/20 12:03 [facility] (Rec: 07/13/20 12:23 [facility] [id number]) Occupational Therapy Current Condition Current Condition Evaluation Date 07/13/20 Treatment Diagnosis Spinal stenosis s/p L3-4, L4-5 TLIF with posterior inst Diagnosis Onset Date 07/12/20 Post Operative Precautions Lumbar Precautions Log Roll,No Twisting,Limit Bending,Lifting Restriction of 10 lbs,Gait Belt above Incisional Area M3 OT- IP Subjective and Pain Start: 07/13/20 12:03 Freq: Status: Active Protocol: Document 07/14/20 15:07 [facility] (Rec: 07/14/20 15:33 [facility] [id number]) OT- Subjective Occupational Therapy Visit Type Type Treatment Note Visit Start Time 14:15 Visit Stop Time 15:03 Total Visit Minutes 48 Occupational Therapy Visit Comments Patient Comments Pt wanting to shower and pt's daughter present. Patient/Caregiver Goals To be able to get stronger and be able to care for herself again. OT Pain Assessment Pain When Pain Assessed At Rest Pain Present Pain Present Denied Pain M4 OT- IP ADL's Start: 07/13/20 12:03 Freq: Status: Active Protocol: Document 07/14/20 15:07 [facility] (Rec: 07/14/20 15:33 [facility] [id number]) OT [id number] Comments OT Self-Feeding Comments Not at meal time. OT ADL-Grooming Comments OT Grooming Comments NOt performed. OT ADL-Dressing General Eval Lower Body Dressing Ability Maximum Assistance Areas Needing Assistance Underpants/Brief,Socks Comments OT Dressing Comments Pt too tired from showering and needing assist for sock at this time. OT ADL-Toileting Comments OT Toileting Comments Pt not having to go at this time. Pt's daughter to order a toilet paper aid for pt. At this time pt is dependent for hygiene needs. OT ADL-Bathing Bathing Type Bathing Type Shower General Evaluation Bathing Ability Moderate Assistance Areas Needing Assistance Wash/Dry Back,Wash/Dry Perineal Area Devices Bathing Equipment Long Handled Sponge or Jet, Shower Chair with Arms,Grab Bars Comments OT Bathing Comments Due to back precautions not able to reach for her hygiene needs and also needing assist for her back. Pt able to use long handled brush to assist with her back but not able to reach in some areas. Suggested another option may be to use a long thin towel to assist to wash her back. Pt still needing DEISI to stand with grab bars while assist pt with pericare needs. M5 OT- IP IADL's Start: 07/13/20 12:03 Freq: Status: Active Protocol: Document 07/13/20 12:03 [facility] (Rec: 07/13/20 12:23 [facility] [id number]) OT-Instrumental Activities of Daily Living Home Safety Awareness Awareness of Need for Assistance at Home Good Awareness Ability to Problem Solve Emergency Able to Problem Solve Situations Medication Management Medication Management No Deficits Identified Money Management Money Management No Deficits Identified Meal Preparation Meal Preparation Caregiver Provides Assist Instructor Modeling Instructor Modeling Caregiver Provides Assist M6 OT- IP Functional Cognition Start: 07/13/20 12:03 Freq: Status: Active Protocol: Document 07/14/20 15:07 [facility] (Rec: 07/14/20 15:33 [facility] [id number]) Cognitive Factors Limiting Selfcare Function Cognitive Ability Patient Orientation Name,Age,Birthday,Month,Date, Year,Day of Week,Place, Situation Attention Span Ability Capable of Focused Attention, Capable of Sustained Attention Ability to Follow Commands Able to Follow One Step Commands Memory Description No Deficits Noted Safety Awareness Underestimates Need for Assistance Cognitive Comments Cognitive Assessment Comments Pt needing vc for safety awareness for back precautions , vc to keep the FWW close and to reach back with her hands before sitting down. M7 OT- IP Mobility and Balance Start: 07/13/20 12:03 Freq: Status: Active Protocol: Document 07/14/20 15:07 [facility] (Rec: 07/14/20 15:33 [facility] [id number]) OT-Transfer Assessment Sit to and From Stand Sit to and from Stand Minimal Assistance,Moderate Assistance Technique Transfer Destination Chair,Shower Stall Transfer Technique Stand Step Pivot Devices Transfer Assistive Devices Gait Belt,Front Wheeled Walker Comments Mobility Comments Today pt needing more assist to stand especially from lower surfaces MODA. Pt also needing more steadying while trying to step over the threshold of the shower. OT- Balance Assessment Sitting Balance and Reactions Static Sitting Balance Ability Normal Dynamic Sitting Balance Ability Good Standing Balance and Reactions Static Standing Balance Ability Fair M8 OT- IP Objective Assessments Start: 07/13/20 12:03 Freq: Status: Active Protocol: Document 07/13/20 12:03 [facility] (Rec: 07/13/20 12:23 [facility] [id number]) OT Gross Range of Motion Upper Extremity Range of Motion Assessment Within Functional Limits OT-Muscle Tone Assessment Muscle Tone WNL Yes M9 OT- IP Assessment and Plan Start: 07/13/20 12:03 Freq: Status: Active Protocol: Document 07/14/20 15:07 [facility] (Rec: 07/14/20 15:33 [facility] [id number]) OT Summary Assessment and Plan Potential Rehabilitation Potential Good Analytic Complexity at Evaluation Low Summary OT Impairments Pain,Functional Mobility, Grooming,Dressing,Toileting, Bathing,Toilet Transfers, Shower Transfers,Activity Tolerance Progress Towards Goals Slow Progress due to Activity Tolerance Assessment Summary Pt today noted needing more assist to stand and needing assist for LB Dressing and bathing needs. Pt decreased activity tolerance , and too tired to assist for donning her socks after the shower. Pt lives alone will benefit from skilled rehab to work on improving overall activity tolerance, safety for back precautions , mobility needs, and practice LB dressing and other equipment needs for pt to return to prior level of function. Pt very motivated and willing to get better. Goals Grooming Goal Independent Dressing Goal Independent Toileting Goal Independent Bathing Goal Independent Toilet Transfer Goal Independent Patient/Caregiver Education Goal Demonstrate Post-Op Precautions Days to Meet Goals 15 Frequency of Treatment Frequency Of Treatment Once a Day Treatment Plan OT Treatment Plan ADL Training,Functional Cognition Training,Functional Mobility,Patient/Family Education,Discharge Planning Other Treatment Recommendations and Next Standing with FWW for grooming Treatment Focus needs and good safety for back precautions. Discharge Recommendations OT Discharge Recommendations SNF Rehab Home Equipment Needs Toilet paper aid, long handled sponge Transportation Needs at Discharge Wheelchair/Cabulance
[2020-07-14 15:30] VITALS: BP 139/71; PULSE 63; RESP 14; TEMP 37.1; O2SAT 92
--- NOTE | 2020-07-14 15:59 | CM.DPNOTE ---
DCP Note Therapy team recommending SNF, patient has [facility] so faxed updated clinical and therapy notes to [facility] requesting review for SNF auth. Met w/patient and her dtr Rosa; explained process for SNF auth request, patient understood and requested referral be sent to [facility]. Also prepared patient/dtr for likely medical DC tomorrow(?) first choice SNF but need b/u option- home w/family and home health. Patient/dtr understood, family can stay w/patient over the weekend although dtr will need to return to work Sunday 9.28.20 Updated [facility] on above Will plan to continue coordination of DCP tomorrow AM JW
--- NOTE | 2020-07-14 16:24 | PT.IPTN ---
Current Diagnoses Spondylolisthesis, lumbar region (07/13/20) Spinal stenosis, lumbar region without neurogenic claudication (07/13/20) Postlaminectomy syndrome, not elsewhere classified (07/13/20) Surgery Performed Operation Date: 07/12/20 12:45 Actual Procedures p L3-4, L4-5 TLIF w/posterior instrumentation(Not Applicable) - Natividad Teague MD Physical Therapy Treatment Note M2 PT-IP Current Condition Start: 07/13/20 11:18 Freq: NEEDED Status: Active Protocol: Document 07/13/20 09:49 AB (Rec: 07/13/20 11:34 AB [id number]) Physical Therapy Current Condition Current Condition Evaluation Date 07/13/20 Treatment Diagnosis s/p L3-4, L4-5 fusion/lami; difficulty in walking Onset Date 07/12/20 Precautions Lumbar Precautions Log Roll,No Twisting,Limit Bending,Lifting Restriction of 10 lbs,Gait Belt above Incisional Area M3 PT-IP Subjective Start: 07/13/20 11:18 Freq: NEEDED Status: Active Protocol: Document 07/14/20 16:04 SP (Rec: 07/14/20 16:49 SP [id number]) Subjective Physical Therapy Visit Type Type Treatment Note Visit Start Time 16:04 Visit Stop Time 16:24 Total Visit Minutes 20 Number of MOTOR SCOOTER MECHANIC Visits 1 Physical Therapy Visit Comments Patient Comments Pt agreeable to working with PT. Therapy Pain Assessment Pain When Pain Assessed During Mobility Pain Present Pain Present Pain Reported Location Bilateral Knee Intensity 3 Scale Used Numeric (0 - 10) Pain Management Techniques Modification of Treatment,Re- positioning,Timing of Activity with Medications M4 PT-IP Mobility and Gait Start: 07/13/20 11:18 Freq: NEEDED Status: Active Protocol: Document 07/14/20 16:04 SP (Rec: 07/14/20 16:49 SP [id number]) PT-Transfer Assessment Sit to and From Stand Sit to and from Stand Contact Guard Assistance,1 Person Assistance,Use of Upper Extremities Equipment Transfer Assistive Device Gait Belt,Front Wheeled Walker Orthotic/Prosthetic Devices or Brace: No Transfers Transfer Destination Chair,Toilet Transfer Technique Stand Step Pivot Transfer Ability Level of Assist Contact Guard Assistance,1 Person Assistance,Use of Upper Extremities Comments Mobility Comments Pt was reclined in chair when arrived, full assistance for LE rest to lower. Sit> stand BUE on chair arms using FWW, ambulated to bathroom approx 8 ft CGA, noted R knee buckle x1 but able to recover with BUe on FWW and brief Min A with cuing for quad facilitation each R stepping. SPT using FWW cuing for backing up fully with FWW, used grab bar RUE and FWW LUE slow descent to toilet CGA. Pt was able to complete pericare self in sitting, sit>stand CGA with grab bar support, ambulated to sink CGA FWW approx 15 ft step to gait with improvement decreased to occasional cuing for R quad facilitation carryover. Instructed FWW positioning facing sink for self stability and balance support, patient demonstrated leaning forearms on sink, cued upright posture to maintain safety precautions of no bending forward, self recorrections upright. Pt able to walk further distance to door and back to chair approx 20 ft step to gait heavy BUE WB on FWW and + SOB. SPT with good FWW repositioning and reaching back BUE slow descent into chair. Pt declined further ambulation or reassessment of bed mobility, I am going to sleep in the recliner at home. MOTOR SCOOTER MECHANIC educated importance of the strengthening work that goes into performing bed mobility with verbal understanding. Pt was reclined in chair with call light and all needs in reach before left. Gait Assessment Gait Gait Assistance Required: Contact Guard Assist,Minimum Assistance,1 Person Assist Distance (Feet) 35 Able to Maintain Weight Bearing Status Yes During Gait Assistive Devices Assistive Device Gait Belt,Front Wheeled Walker Orthotic/Prosthetic Devices or Brace: No Gait Deviations General Gait Pattern Antalgic,Decreased Stride Length,Decreased Feet Clearance,Wide Based Gait Factors Limiting Gait Function Factors Limiting Gait Function Decreased Activity Tolerance, Decreased Sensation,Decreased Strength,Limited Range of Motion,Pain,Poor Balance,Poor Safety Awareness Comments Gait Comments refer to mobility commments for details. Stair Climbing Assessment Comments Stair Climbing Comments not assess due to decreased strength and activity tolerance, R knee unstable. Will need to assess when safe to discharge home. PT-Balance Assessment Sitting Balance and Reactions Static Sitting Balance Ability Normal Dynamic Sitting Balance Ability Good Standing Balance and Reactions Static Standing Balance Ability Fair Dynamic Standing Balance Ability Fair Device Used FWW M5 PT-IP Objective Assessments Start: 07/13/20 11:18 Freq: NEEDED Status: Active Protocol: Document 07/13/20 09:49 AB (Rec: 07/13/20 11:34 AB [id number]) Orientation Orientation/Cognition Level of Alertness Alert Orientation Name,Age,Birthday,Month,Date, Year,Day of Week,Place, Situation Language Function Ability No Deficits Noted Memory Description Short Term Impaired Gross Range of Motion Lower Extremity ROM Assessment Within Functional Limits Strength Lower Extremity Strength Assessment Right Impaired Hip 3+/5 Knee 3+/5 Coordination Assessment Gross Coordination Gross Coordination WNL Sensation Assessment Sensation Gross Sensation Right LE Impaired Light Touch Impaired Proprioception (Position) Impaired Sensation Description Numbness Comments Sensation Comments stated RLE numbness : chronic and can only feel ~ 30 % Muscle Tone Muscle Tone WNL Yes M6 PT-IP Treatment Start: 07/13/20 11:18 Freq: NEEDED Status: Active Protocol: Document 07/14/20 16:04 SP (Rec: 07/14/20 16:49 SP [id number]) Physical Therapy Treatment Education Education Provided Precautions,Safety M7 PT-IP Assessment and Plan Start: 07/13/20 11:18 Freq: NEEDED Status: Active Protocol: Document 07/14/20 16:04 SP (Rec: 07/14/20 16:49 SP [id number]) PT Summary Assessment and Plan Potential Rehabilitation Potential Fair Status of Condition at Evaluation Stable Summary Impairments Pain,ROM,Strength,Balance, Coordination,Sensation,Tone, Cognition,Bed Mobility, Transfers,Gait,Activity Tolerance Progress Towards Goals Slow Progress due to Medical Issues,Slow Progress due to Activity Tolerance Assessment Summary Pt required decreased assist required durign mobiltiy CGA transfers, gait, brief (+) R knee buckling x1 during ambulation requiring MOTOR SCOOTER MECHANIC provide Min support at gait belt and cuing for R quad facilitation pt able to recorrect into extension. Pt able to walk further distance 35 ft in room using FWW cGA. Pt also has steps to enter the house and at this time is not appropriate to do stair climbing training due to RLE weakness with (+) R knee buckling. Pt is a high fall risk and will require 24/7 care at this time. pt needs to be more independent than current level before she can be safe to go home and will need SNF rehab. Goals Bed Mobility Goal Independent Transfer Goal Independent,Front Wheeled Walker Gait Goal Independent,Front Wheel Walker Gait Distance 150 Other Goals up/down 3 steps L rail ascending SBA Days to Meet Goals 5 Frequency of Treatment Frequency Of Treatment Twice a Day Treatment Plan Physical Therapy Treatment Plan Bed Mobility Training,Transfer Training,Gait Training, Therapeutic Exercise,Balance Retraining,Post Op Education, Discharge Planning,Hot or Cold Pack,Neuromuscular Re-ed, Coordination Retraining,Manual Therapy Other Recommendations and Next Treatment bed mobility, ambulation, Le Focus ex Recommendations To Nursing Amount of Assist Needed 1 Person Assist Discharge Recommendations PT Discharge Recommendations SNF Rehab Transportation Needs at Discharge Private Vehicle
[2020-07-14] MEDS: SENNOSIDES 8.6 MG TABLET 17.2 MG PO (20:02)
[2020-07-15 00:10] VITALS: BP 124/73; PULSE 66; RESP 16; TEMP 37.3; O2SAT 93
--- NOTE | 2020-07-15 00:32 | PC.NURSE ---
Addendum entered by Rosi Yanez R.N. 07/15/20 04:27: Pt sleeping at intervals in chair. Denies discomfort, Condition remains essentially unchanged, Call light w/in reach, pt calls appropriately for needs. Continue w/plan of care. Original Note: Pt sitting in chair to rest. Lungs clear, SpO2 96% RA Dsg to lower back CDI Denies discomfort at this time. Call light w/in reach, pt calls appropriately for needs.
[2020-07-15 04:28] VITALS: BP 142/71; PULSE 67; RESP 18; TEMP 36.3; O2SAT 92
[2020-07-15] MEDS: HYDROCODONE/ACET 5/325 TABLET 2 TAB PO ×2 (06:43→12:49)
[2020-07-15] MEDS: PANTOPRAZOLE 20 MG TABLET PO (06:50)
[2020-07-15 08:08] VITALS: BP 125/60; PULSE 67; RESP 18; TEMP 36.5; O2SAT 97
[2020-07-15] MEDS: MELOXICAM 7.5 MG TABLET PO (08:54)
[2020-07-15] MEDS: DOCUSATE 100 MG CAPSULE PO (08:54)
[2020-07-15] MEDS: METOPROLOL IR 50 MG TABLET PO (08:54)
[2020-07-15] MEDS: hydroCHLOROthiazide 12.5 MG CAPSULE PO (08:57)
--- NOTE | 2020-07-15 10:00 | PC.NURSE ---
Patient given vicodin at 0700, this has been helpful to patient. Her dressing to lower back is cdi. Up with 1 PA to transfer to commode. Patients r.leg has a tendency to buckle at times. 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 CMS and ppx2. Patient is going to discharge to SNF, awaiting for insurance authorization.
--- NOTE | 2020-07-15 10:31 | PT.IPTN ---
Current Diagnoses Spondylolisthesis, lumbar region (07/13/20) Spinal stenosis, lumbar region without neurogenic claudication (07/13/20) Postlaminectomy syndrome, not elsewhere classified (07/13/20) Surgery Performed Operation Date: 07/12/20 12:45 Actual Procedures p L3-4, L4-5 TLIF w/posterior instrumentation(Not Applicable) - Natividad Teague MD Physical Therapy Treatment Note M2 PT-IP Current Condition Start: 07/13/20 11:18 Freq: NEEDED Status: Active Protocol: Document 07/13/20 09:49 AB (Rec: 07/13/20 11:34 AB [email or web address]) Physical Therapy Current Condition Current Condition Evaluation Date 07/13/20 Treatment Diagnosis s/p L3-4, L4-5 fusion/lami; difficulty in walking Onset Date 07/12/20 Precautions Lumbar Precautions Log Roll,No Twisting,Limit Bending,Lifting Restriction of 10 lbs,Gait Belt above Incisional Area M3 PT-IP Subjective Start: 07/13/20 11:18 Freq: NEEDED Status: Active Protocol: Document 07/15/20 10:06 KS (Rec: 07/15/20 12:21 KS [email or web address]) Subjective Physical Therapy Visit Type Type Treatment Note Visit Start Time 10:06 Visit Stop Time 10:31 Total Visit Minutes 25 Number of MANAGER CASE MANAGEMENT Visits 2 Physical Therapy Visit Comments Patient Comments Pt agreeable to working with PT. Therapy Pain Assessment Pain When Pain Assessed During Mobility Pain Present Pain Present Denied Pain M4 PT-IP Mobility and Gait Start: 07/13/20 11:18 Freq: NEEDED Status: Active Protocol: Document 07/15/20 10:06 KS (Rec: 07/15/20 12:21 KS [email or web address]) PT-Bed Mobility Assessment Rolling Type of Rolling Roll to Left Level of Assist Contact Guard Assistance, Minimal Assistance,1 Person Assistance Supine to Sit Supine to Sit Minimal Assistance,Moderate Assistance,1 Person Assistance ,Head of Bed Elevated,Bedrails Sit to Supine Sit to Supine Minimal Assistance,1 Person Assistance,Bedrails Scooting Scooting to Edge of Bed Minimal Assistance PT-Transfer Assessment Sit to and From Stand Sit to and from Stand Contact Guard Assistance,1 Person Assistance,Use of Upper Extremities Equipment Transfer Assistive Device Gait Belt,Front Wheeled Walker Orthotic/Prosthetic Devices or Brace: No Transfers Transfer Destination Bed,Toilet Transfer Technique Pt ambulated w/ FWW Transfer Ability Level of Assist Contact Guard Assistance, Minimal Assistance,1 Person Assistance,Use of Upper Extremities Comments Mobility Comments Pt was in bed upon arrival from therapy. Instructed pt in LE exercises including ankle pumps, quad sets, glute sets, and heel slides to promote blood flow and strengthening. Pt completed 1x10 of each. Pt then logroll to R w/ CGA to Min A and bed rails w/ HOB elevated. Min A for sidelying< >sit and scooting to EOB. Pt then sit<>stand CGA w/ FWW and ambulated to bathroom Min A to Mod A to avoid R knee buckling. Pt able to ambulate to bathroom ~10 ft w/ FWW but needed verbal and tactile cues to avoid R knee buckling and for FWW management. Pt fatgiues from using BUE to avoid R knee buckling and is limited by weakness and low tolerance for activity. Pt ambulated back to bed Min to Mod A, CGA for stand<>sit and sit<>sidelying Min to Mod A w/ cues to maintain spinal precautions and for LE assist into bed, Min A for logroll onto back and Mod A for repositioning in bed. Pt left in bed w/ all needs in reach. Gait Assessment Gait Gait Assistance Required: Minimum Assistance,Moderate Assistance,1 Person Assist Distance (Feet) 20 Able to Maintain Weight Bearing Status Yes During Gait Assistive Devices Assistive Device Gait Belt,Front Wheeled Walker Orthotic/Prosthetic Devices or Brace: No Gait Deviations General Gait Pattern Antalgic,Decreased Stride Length,Decreased Feet Clearance,Wide Based Gait Factors Limiting Gait Function Factors Limiting Gait Function Decreased Activity Tolerance, Decreased Sensation,Decreased Strength,Limited Range of Motion,Pain,Poor Balance,Poor Safety Awareness Comments Gait Comments Pt ambulated ~20 ft total w/ FWW and Min to Mod A to prevent R knee buckling. Pt unable to support herself w/ BUE to prevent R knee buckling during ambulation d/t weakness. Pt needed frequent verbal and tactile cues to recover from R knee buckling and was not able to prevent buckling while ambulating or standing still. Pt remains high fall risk and is not safe to ambulate on her own. Stair Climbing Assessment Comments Stair Climbing Comments not assess due to decreased strength and activity tolerance, R knee unstable. Will need to assess when safe to discharge home. PT-Balance Assessment Sitting Balance and Reactions Static Sitting Balance Ability Normal Dynamic Sitting Balance Ability Good Standing Balance and Reactions Static Standing Balance Ability Fair Dynamic Standing Balance Ability Fair Device Used FWW M5 PT-IP Objective Assessments Start: 07/13/20 11:18 Freq: NEEDED Status: Active Protocol: Document 07/13/20 09:49 AB (Rec: 07/13/20 11:34 AB [id number]) Orientation Orientation/Cognition Level of Alertness Alert Orientation Name,Age,Birthday,Month,Date, Year,Day of Week,Place, Situation Language Function Ability No Deficits Noted Memory Description Short Term Impaired Gross Range of Motion Lower Extremity ROM Assessment Within Functional Limits Strength Lower Extremity Strength Assessment Right Impaired Hip 3+/5 Knee 3+/5 Coordination Assessment Gross Coordination Gross Coordination WNL Sensation Assessment Sensation Gross Sensation Right LE Impaired Light Touch Impaired Proprioception (Position) Impaired Sensation Description Numbness Comments Sensation Comments stated RLE numbness : chronic and can only feel ~ 30 % Muscle Tone Muscle Tone WNL Yes M6 PT-IP Treatment Start: 07/13/20 11:18 Freq: NEEDED Status: Active Protocol: Document 07/15/20 10:06 KS (Rec: 07/15/20 12:21 KS [email or web address]) Physical Therapy Treatment Exercises Exercises Ankle Pumps,Gluteal Sets,Quad Sets,Heel Slides Education Education Provided Precautions,Safety M7 PT-IP Assessment and Plan Start: 07/13/20 11:18 Freq: NEEDED Status: Active Protocol: Document 07/15/20 10:06 KS (Rec: 07/15/20 12:21 KS [email or web address]) PT Summary Assessment and Plan Potential Rehabilitation Potential Fair Status of Condition at Evaluation Stable Summary Impairments Pain,ROM,Strength,Balance, Coordination,Sensation,Tone, Cognition,Bed Mobility, Transfers,Gait,Activity Tolerance Progress Towards Goals Slow Progress due to Medical Issues,Slow Progress due to Activity Tolerance Assessment Summary Pt required CGA to Min A for logroll, Min A for sidelying to sit w/ HOB elevated, bed rails, and cues for hand placement and sequencing and Min A w/ cues and bed rails for scooting to EOB. CGA and cues for sit<>stand, Min to Mod A for ambulation d/t instability and frequent R knee buckling. Pt does not have strength or balanced required to use BUE or L leg to recover or prevent R knee from buckling and needs frequent cues, therefore is currently not a safe ambulator . Pt only able to tolerate ~20 ft ambulation d/t weakness, low tolerance for activity, and R knee buckling. Min to Mod A for sit<>sidelying for LE assist into bed and maintaining spinal precautions . Pt will require SNF to improve safety w/ ambulation, strength, bed mobility, and tolerance for activity. Goals Bed Mobility Goal Independent Transfer Goal Independent,Front Wheeled Walker Gait Goal Independent,Front Wheel Walker Gait Distance 150 Other Goals up/down 3 steps L rail ascending SBA Days to Meet Goals 5 Frequency of Treatment Frequency Of Treatment Twice a Day Treatment Plan Physical Therapy Treatment Plan Bed Mobility Training,Transfer Training,Gait Training, Therapeutic Exercise,Balance Retraining,Post Op Education, Discharge Planning,Hot or Cold Pack,Neuromuscular Re-ed, Coordination Retraining,Manual Therapy Other Recommendations and Next Treatment bed mobility, ambulation, Le Focus ex Recommendations To Nursing Amount of Assist Needed 1 Person Assist Discharge Recommendations PT Discharge Recommendations SNF Rehab Transportation Needs at Discharge Private Vehicle
--- NOTE | 2020-07-15 11:37 | OT.IPNOTE ---
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
[2020-07-15 12:32] VITALS: BP 130/48; PULSE 64; RESP 18; TEMP 36.7; O2SAT 95
--- NOTE | 2020-07-15 12:42 | PM.PN.1 ---
Subjective Subjective Date Patient Seen: 07/15/20 Interval history: Patient is POD #3 s/p L3-4, L4-5 TLIF w/posterior instrumentation with Dr. Teague. Pain has been mostly well controlled though she is complaining of nerve pain about the incision at time of exam. She continues to be slow to mobilize with PT and knees have been buckling. She is tolerating a diet and voiding appropriately. Exam Vital Signs (past 8 hours): - 07/15/20 08:08 Temperature 97.7 F Pulse Rate 67 Respiratory Rate 18 Blood Pressure 125/60 Pulse Oximetry 97 Oxygen Delivery Method Room Air Oxygen Flow Rate 0 Narrative Exam Narrative: 84 year old female resting in bed. AAOX3. Dressing in place is CDI, area of shadow drainage overlying the right incision. 5/5 BLE. Calves soft. Objective Labs Result Diagrams: 07/13/20 06:48 Assessment & Plan Assessment & Plan narrative: Patient continues to progress slowly postoperatively due to her medical comorbid conditions and body habitus. Continue to mobilize with PT. Continue present pain control. She will likely require discharge to SNF vs home health. She is medically stable for discharge later today pending auth. Quality VTE Deep Vein Thrombosis/Pulmonary Embolism Present on Admission: No
--- NOTE | 2020-07-15 13:59 | OT.IP.TRT ---
Current Diagnoses Spondylolisthesis, lumbar region (07/13/20) Spinal stenosis, lumbar region without neurogenic claudication (07/13/20) Postlaminectomy syndrome, not elsewhere classified (07/13/20) Surgery Performed Operation Date: 07/12/20 12:45 Actual Procedures p L3-4, L4-5 TLIF w/posterior instrumentation(Not Applicable) - Natividad Teague MD Occupational Therapy Treatment Note M2 OT-IP Current Condition Start: 07/13/20 12:03 Freq: Status: Active Protocol: Document 07/13/20 12:03 [facility] (Rec: 07/13/20 12:23 [facility] [id number]) Occupational Therapy Current Condition Current Condition Evaluation Date 07/13/20 Treatment Diagnosis Spinal stenosis s/p L3-4, L4-5 TLIF with posterior inst Diagnosis Onset Date 07/12/20 Post Operative Precautions Lumbar Precautions Log Roll,No Twisting,Limit Bending,Lifting Restriction of 10 lbs,Gait Belt above Incisional Area M3 OT- IP Subjective and Pain Start: 07/13/20 12:03 Freq: Status: Active Protocol: Document 07/15/20 15:31 [facility] (Rec: 07/15/20 16:10 [facility] [id number]) OT- Subjective Occupational Therapy Visit Type Type Treatment Note Visit Start Time 13:38 Visit Stop Time 13:59 Total Visit Minutes 21 Occupational Therapy Visit Comments Patient Comments Pt wanting to use the toilet. Patient/Caregiver Goals Pt would rather go to skilled rehab. OT Pain Assessment Pain When Pain Assessed At Rest Pain Present Pain Present Denied Pain M4 OT- IP ADL's Start: 07/13/20 12:03 Freq: Status: Active Protocol: Document 07/15/20 15:31 [facility] (Rec: 07/15/20 16:10 [facility] [id number]) OT [id number] Comments OT Self-Feeding Comments Not at meal time. OT ADL-Grooming General Evaluation Grooming Ability Standby Assistance Comments OT Grooming Comments SBA with FWW at the sink. OT ADL-Dressing Comments OT Dressing Comments Pt states to wear gown at home if going home. OT ADL-Toileting General Evaluation Toileting Ability Moderate Assistance Comments OT Toileting Comments Pt able to reach from the front and needing assist to clean from the behind as unable to reach appropriately. Pt states not sure if her daughter has ordered the toilet paper aid yet. M5 OT- IP IADL's Start: 07/13/20 12:03 Freq: Status: Active Protocol: Document 07/13/20 12:03 [facility] (Rec: 07/13/20 12:23 [facility] [id number]) OT-Instrumental Activities of Daily Living Home Safety Awareness Awareness of Need for Assistance at Home Good Awareness Ability to Problem Solve Emergency Able to Problem Solve Situations Medication Management Medication Management No Deficits Identified Money Management Money Management No Deficits Identified Meal Preparation Meal Preparation Caregiver Provides Assist Product Development Intern Product Development Intern Caregiver Provides Assist M6 OT- IP Functional Cognition Start: 07/13/20 12:03 Freq: Status: Active Protocol: Document 07/15/20 15:31 [facility] (Rec: 07/15/20 16:10 [facility] [id number]) Cognitive Factors Limiting Selfcare Function Cognitive Ability Level of Alertness Alert Patient Orientation Name,Age,Birthday,Month,Date, Year,Day of Week,Place, Situation Attention Span Ability Capable of Focused Attention, Capable of Sustained Attention Ability to Follow Commands Able to Follow Multi-Step Commands Memory Description No Deficits Noted Safety Awareness No Deficits Noted Cognitive Comments Cognitive Assessment Comments Pt doing better today with cognition to incorporate back precautions for needs. M7 OT- IP Mobility and Balance Start: 07/13/20 12:03 Freq: Status: Active Protocol: Document 07/15/20 15:31 [facility] (Rec: 07/15/20 16:10 [facility] [id number]) OT- Bed Mobility Assessment Rolling Type of Rolling Roll to Right Supine to Sit Supine to Sit Assist Standby Assistance Sit to Supine Sit to Supine Assist Minimal Assistance OT-Transfer Assessment Sit to and From Stand Sit to and from Stand Standby Assistance Transfers Transfer Ability Standby Assistance,Moderate Assistance Technique Transfer Destination Bed,Toilet Transfer Technique Stand Step Pivot Devices Transfer Assistive Devices Gait Belt,Front Wheeled Walker Comments Mobility Comments Pt able to get out of bed with increased time and able to follow her back precautions. On getting back in pt got a little off centered and needing DEISI to help with her legs. Pt states if having to go home will just sleep in her recliner. Pt having heavy use of arms on the FWW, no buckling noted for the short distance to and from the bathroom at this time. However as pt tires unexpectedly che with right knee and is a high fall risk. Pt is not consistent with her mobility needs. OT- Balance Assessment Sitting Balance and Reactions Static Sitting Balance Ability Normal Dynamic Sitting Balance Ability Good Standing Balance and Reactions Static Standing Balance Ability Good M8 OT- IP Objective Assessments Start: 07/13/20 12:03 Freq: Status: Active Protocol: Document 07/13/20 12:03 [facility] (Rec: 07/13/20 12:23 [facility] [id number]) OT Gross Range of Motion Upper Extremity Range of Motion Assessment Within Functional Limits OT-Muscle Tone Assessment Muscle Tone WNL Yes M9 OT- IP Assessment and Plan Start: 07/13/20 12:03 Freq: Status: Active Protocol: Document 07/15/20 15:31 [facility] (Rec: 07/15/20 16:10 [facility] [id number]) OT Summary Assessment and Plan Potential Rehabilitation Potential Good Analytic Complexity at Evaluation Low Summary OT Impairments Pain,Functional Mobility, Grooming,Dressing,Toileting, Bathing,Toilet Transfers, Shower Transfers,Activity Tolerance Progress Towards Goals Progressing Toward Goals Assessment Summary Pt did better for bed mobility and ability to walk short distances to the bathroom. However, pt is not consistent as at times and will buckle with right knee as did buckle with PT in the AM. Pt still not able to wipe and needing to use LB dressing equipment to assist. It is still recommended best for pt to go to skilled rehab as prior to back surgery was very limited for her activity tolerance and mainly just stayed in her recliner. Pt is very motivated to get better and wants to be able to get around without fear of falling and be more independent with her needs. Pt 's biggest barrier to going home in her 3 steps into the house and limited activity tolerance. Pt would strongly benefit from skilled rehab as currently pt is a high fall risk. Goals Grooming Goal Independent Dressing Goal Independent Toileting Goal Independent Bathing Goal Independent Toilet Transfer Goal Independent Patient/Caregiver Education Goal Demonstrate Post-Op Precautions Days to Meet Goals 10 Frequency of Treatment Frequency Of Treatment Once a Day Treatment Plan OT Treatment Plan ADL Training,Functional Cognition Training,Functional Mobility,Patient/Family Education,Discharge Planning Other Treatment Recommendations and Next Standing with FWW for grooming Treatment Focus needs and good safety for back precautions. Discharge Recommendations OT Discharge Recommendations SNF Rehab Home Equipment Needs Toilet paper aid, long handled sponge Transportation Needs at Discharge Private Vehicle
--- NOTE | 2020-07-15 16:18 | CM.DPNOTE ---
DC Note Attempted SNF today and never got a determination from [place] [facility] so planned for home w/HH through [facility]. Faxed HH referral to [facility] and updated patient, patient agreeable. This [employer] placed call to patient's family, had to LM updating on plan. Just heard that family has not yet been in contact w/patient or staff so [facility] will place another call. therapy team hesitant to clear patient for return home this evening, suggested they speak w/ [facility] this afternoon if they feel DC needs to be cancelled? P: DC likely home w/family and [facility] this evening. ADELIA Lowe
--- NOTE | 2020-07-15 17:05 | PT.IPTN ---
Current Diagnoses Spondylolisthesis, lumbar region (07/13/20) Spinal stenosis, lumbar region without neurogenic claudication (07/13/20) Postlaminectomy syndrome, not elsewhere classified (07/13/20) Surgery Performed Operation Date: 07/12/20 12:45 Actual Procedures p L3-4, L4-5 TLIF w/posterior instrumentation(Not Applicable) - Natividad Teague MD Physical Therapy Treatment Note M2 PT-IP Current Condition Start: 07/13/20 11:18 Freq: NEEDED Status: Discharge Protocol: Document 07/13/20 09:49 AB (Rec: 07/13/20 11:34 AB [id number]) Physical Therapy Current Condition Current Condition Evaluation Date 07/13/20 Treatment Diagnosis s/p L3-4, L4-5 fusion/lami; difficulty in walking Onset Date 07/12/20 Precautions Lumbar Precautions Log Roll,No Twisting,Limit Bending,Lifting Restriction of 10 lbs,Gait Belt above Incisional Area M3 PT-IP Subjective Start: 07/13/20 11:18 Freq: NEEDED Status: Discharge Protocol: Document 07/15/20 15:47 KS (Rec: 07/15/20 18:17 KS [email or web address]) Subjective Physical Therapy Visit Type Type Treatment Note Visit Start Time 15:47 Visit Stop Time 17:05 Total Visit Minutes 62 Notes Split treatment 15:47-16:25. 16:41-17:05 Number of [employer]PER[employer] Visits 3 Physical Therapy Visit Comments Patient Comments Pts son present during second half of treatment for caregiver training. M4 PT-IP Mobility and Gait Start: 07/13/20 11:18 Freq: NEEDED Status: Discharge Protocol: Document 07/15/20 15:47 KS (Rec: 07/15/20 18:17 KS [email or web address]) PT-Bed Mobility Assessment Scooting Scooting to Edge of Bed Contact Guard Assistance PT-Transfer Assessment Sit to and From Stand Sit to and from Stand Contact Guard Assistance,1 Person Assistance,Use of Upper Extremities Equipment Transfer Assistive Device Gait Belt,Front Wheeled Walker Orthotic/Prosthetic Devices or Brace: No Transfers Transfer Destination Chair,Wheelchair Transfer Technique Pt ambulated w/ FWW Transfer Ability Level of Assist Contact Guard Assistance,1 Person Assistance,Use of Upper Extremities Comments Mobility Comments Pt in chair upon arrival from therapy. CGA for scooting to EOC, CGA and cues for sit<> stand w/ FWW. Pt performed 30 seconds weight shifting followed by 2x15 seconds SLS on RLE, in which no R knee buckling was present. Pt then ascended/descended 1 step stool w/ FWW and CGA and cues for sequencing. Pt then ambulated to w/c and transferred to w/c CGA, transported to stairs in w/c for energy conservation. Pt sit<>stand w/ FWW CGA . Instructed pt and pt performed platform step w/ FWW and CGA x2 w/ cues for sequencing. Pt then requested to sit d/t fatigue. Transported back to room in w/c. Pts EDGARDO arrived and completed caregiver training. Instructed EDGARDO on gait belt application and guarding/assist. Pt sit<>stand CGA and ambulated to stairs CGA provided by pts EDGARDO. Pt then completed 2x platform step w/ CGA and FWW and cues for sequencing. CGA provided by this SUPERVISOR [employer]ING on first set and by EDGARDO on second set. Pt and EDGARDO state they feel safe to perform stairs at home. Instructed EDGARDO to place stairs on steps and inside in preparation for pt to sit if she becomes fatigued, EDGARDO agreed. Pt then returned to room in w/c d/t fatigue and transferred to chair CGA by EDGARDO. Instructed pt and EDGARDO how to get in and out of car and to place FWW in front of pt when transferring. Reveiwed LE exercises and home environment. Pt states she will sleep in recliner/lift chair until she gets stronger. Gait Assessment Gait Gait Assistance Required: Contact Guard Assist,1 Person Assist Distance (Feet) 50 Able to Maintain Weight Bearing Status Yes During Gait Assistive Devices Assistive Device Gait Belt,Front Wheeled Walker Orthotic/Prosthetic Devices or Brace: No Gait Deviations General Gait Pattern Antalgic,Decreased Stride Length,Decreased Feet Clearance,Wide Based Gait Factors Limiting Gait Function Factors Limiting Gait Function Decreased Activity Tolerance, Decreased Sensation,Decreased Strength,Limited Range of Motion,Pain,Poor Balance Comments Gait Comments Pt ambulated ~50 ft total w/ FWW and CGA. Pt is quick to fatigue, but demonstrated good use of FWW. Stair Climbing Assessment Evaluation Level of Assist On Stairs Contact Guard Assistance,1 Person Assistance,2 Person Assistance Devices Stair Climbing Assistive Devices Front Wheel Walker Technique/Endurance Stair Climbing Direction Ascend and Descend Stair Climbing Technique Step to Step Number of Steps Climbed 3 Stair Climbing Set # Repetitions (reps) 1 Comments Stair Climbing Comments Pt ascended/descended 3x platform steps w/ FWW and CGA x2 for first step, CGA x1 for 2nd and 3rd provided by pts son in law, who was able to provide appropriate cues and assist. Pt and EDGARDO state they feel safe to complete at home. PT-Balance Assessment Sitting Balance and Reactions Static Sitting Balance Ability Normal Dynamic Sitting Balance Ability Good Standing Balance and Reactions Static Standing Balance Ability Fair Dynamic Standing Balance Ability Fair Device Used FWW M5 PT-IP Objective Assessments Start: 07/13/20 11:18 Freq: NEEDED Status: Discharge Protocol: Document 07/13/20 09:49 AB (Rec: 07/13/20 11:34 AB [id number]) Orientation Orientation/Cognition Level of Alertness Alert Orientation Name,Age,Birthday,Month,Date, Year,Day of Week,Place, Situation Language Function Ability No Deficits Noted Memory Description Short Term Impaired Gross Range of Motion Lower Extremity ROM Assessment Within Functional Limits Strength Lower Extremity Strength Assessment Right Impaired Hip 3+/5 Knee 3+/5 Coordination Assessment Gross Coordination Gross Coordination WNL Sensation Assessment Sensation Gross Sensation Right LE Impaired Light Touch Impaired Proprioception (Position) Impaired Sensation Description Numbness Comments Sensation Comments stated RLE numbness : chronic and can only feel ~ 30 % Muscle Tone Muscle Tone WNL Yes M6 PT-IP Treatment Start: 07/13/20 11:18 Freq: NEEDED Status: Discharge Protocol: Document 07/15/20 15:47 KS (Rec: 07/15/20 18:17 KS [email or web address]) Physical Therapy Treatment Exercises Exercises Ankle Pumps,Gluteal Sets,Quad Sets,Heel Slides Education Education Provided Precautions,Safety M7 PT-IP Assessment and Plan Start: 07/13/20 11:18 Freq: NEEDED Status: Discharge Protocol: Document 07/15/20 15:47 KS (Rec: 07/15/20 18:17 KS [email or web address]) PT Summary Assessment and Plan Potential Rehabilitation Potential Fair Status of Condition at Evaluation Stable Summary Impairments Pain,ROM,Strength,Balance, Coordination,Sensation,Tone, Cognition,Bed Mobility, Transfers,Gait,Activity Tolerance Progress Towards Goals Slow Progress due to Activity Tolerance Assessment Summary Pt showed improvement w/ mobility and ambulation this afternoon compared to this morning. Pt CGA for sit<>stand w/ cues and ambulation w/ FWW . Pts EDGARDO present for caregiver training and was educated on gait belt application, transfers, ambulation, and stair training and was able to provide appropriate cues and assist for all. Pt ascended/descended 3 platform steps w/ FWW and CGA x2 on first step, CGA x1 on second and 3rd. Pt and EDGARDO state they feel safe to do stairs at home. Pt continues to be limited by weakness and low tolerance for activity and would benefit from SNF to improve strength and functional mobility, but if going home will require increased caregiver and HHPT to improve functional independence. Goals Bed Mobility Goal Independent Transfer Goal Independent,Front Wheeled Walker Gait Goal Independent,Front Wheel Walker Gait Distance 150 Other Goals up/down 3 steps L rail ascending SBA Days to Meet Goals 5 Frequency of Treatment Frequency Of Treatment Twice a Day Treatment Plan Physical Therapy Treatment Plan Bed Mobility Training,Transfer Training,Gait Training, Therapeutic Exercise,Balance Retraining,Post Op Education, Discharge Planning,Hot or Cold Pack,Neuromuscular Re-ed, Coordination Retraining,Manual Therapy Other Recommendations and Next Treatment bed mobility, ambulation, [place] ex Recommendations To Nursing Amount of Assist Needed 1 Person Assist Discharge Recommendations PT Discharge Recommendations Home with Assistance,Home with 24/7 Assist,Home Health,SNF Rehab Transportation Needs at Discharge Private Vehicle
[2020-07-15] MEDS: HYDROCODONE/ACET 5/325 TABLET 1 TAB PO (17:25)
--- NOTE | 2020-07-15 17:31 | PC.NURSE ---
Discharge instructions reviewed with patient and son. Patient to receive call at home from referral to PT and OT, per [employer]. Patient aware of this. Patient will also make a follow up appointment with PCP and surgeon. Patient and son have no further questions at this time. DC home via private vehicle.
--- NOTE | 2020-07-16 10:42 | CM.DPC ---
DCP/After d/c note: Received message from Brad at [facility]. She reports that they cannot accept HH referral. Therefore, placed call to [facility] and spoke with Misty. She confirms that they do cover [place] and can accept referral. She does report that patient will not get seen till next week. Faxed clinical, F2F, and order to Misty at [phone]. Misty reports that she will contact patient/family with new information. VICK
== END 2020-07-15 17:35 | disposition home or self-care (01) | DRG 454 ==
LOC: OR 07-19 08:04 → AC 07-19 08:04
PROVIDERS: Orthopaedic Surgery; Admitting Provider Orthopaedic Surgery Orthopaedic Surgery of the Spine; Referring Provider Orthopaedic Surgery Orthopaedic Surgery of the Spine; Visit Provider Orthopaedic Surgery Orthopaedic Surgery of the Spine
PROC: 0SG10AJ Fusion of 2 or more Lumbar Vertebral Joints with Interbody Fusion Device, Posterior Approach, Anterior Column, Open Approach (ICD-10-PCS; principal; 2020-07-12 12:45)
DX: M96.1 Postlaminectomy syndrome, not elsewhere classified (principal); Z68.42 Body mass index [BMI] 45.0-49.9, adult; M43.16 Spondylolisthesis, lumbar region; E66.01 Morbid (severe) obesity due to excess calories; M48.062 Spinal stenosis, lumbar region with neurogenic claudication; I10 Essential (primary) hypertension; K21.9 Gastro-esophageal reflux disease without esophagitis; Z86.73 Personal history of transient ischemic attack (TIA), and cerebral infarction without residual deficits; R53.1 Weakness
CPT/HCPCS: 36415; 72100; 76000; 85014; 85018; 97110; 97116; 97161; 97165; 97530; 97535; C1776; C9290; J0330; J0690; J1100; J1170; J2405; J2704; J3010